=== PATIENT | female | born 1940 | race Caucasian/White ===

== ENCOUNTER 2024-05-21 09:26 | Observation (INO) ==
--- NOTE | 2024-04-20 11:43 | PAT Medication Instructions ---
Medication Instructions Date of Service April 20, 2024 Home Medications acetaminophen 325 mg capsule (Tylenol) 650 mg PO QID PRN Pain albuterol sulfate 90 mcg/actuation aerosol inhaler 2 puff inhalation QID PRN sob alendronate 70 mg tablet (Fosamax) 70 mg PO WK apixaban 5 mg tablet (Eliquis) 5 mg PO BID atorvastatin 20 mg tablet (Lipitor) 20 mg PO PM d-mannose 500 mg capsule 500 mg PO BID digoxin 125 mcg (0.125 mg) tablet 125 mcg PO DAILY docusate sodium 100 mg capsule 100 mg PO BID ferrous sulfate 325 mg (65 mg iron) tablet 325 mg PO DAILY fluticasone propionate 50 mcg/actuation nasal spray,suspension 1 spray intranasal BID PRN Congestion lisinopril 5 mg tablet 5 mg PO HS metoprolol succinate 25 mg tablet,extended release 24 hr 25 mg PO BID mirabegron 25 mg tablet,extended release 24 hr (Myrbetriq) 25 mg PO QPM montelukast 10 mg tablet (Singulair) 10 mg PO HS multivitamin 1 tab PO QAM oxycodone 5 mg tablet 5 mg PO BID PRN Pain Continue as directed alendronate 70 mg tablet (Fosamax) 70 mg PO WK ASK your prescriber and surgeon apixaban 5 mg tablet (Eliquis) 5 mg PO BID (From anesthesia perspective, Apixaban/Eliquis needs to be stopped 72 hours/3 days before surgery. Please check if okay with doctor that prescribes this to you) DO NOT take the morning of surgery d-mannose 500 mg capsule 500 mg PO BID docusate sodium 100 mg capsule 100 mg PO BID ferrous sulfate 325 mg (65 mg iron) tablet 325 mg PO DAILY multivitamin 1 tab PO QAM Take morning of surgery With a small sip of water, OTHERWISE NOTHING TO EAT OR DRINK AFTER MIDNIGHT: acetaminophen 325 mg capsule (Tylenol) 650 mg PO QID PRN Pain (if needed) albuterol sulfate 90 mcg/actuation aerosol inhaler 2 puff inhalation QID PRN sob (use if needed; please bring rescue inhaler with you to hospital day of surgery if possible) digoxin 125 mcg (0.125 mg) tablet 125 mcg PO DAILY fluticasone propionate 50 mcg/actuation nasal spray,suspension 1 spray intranasal BID PRN Congestion (if needed) metoprolol succinate 25 mg tablet,extended release 24 hr 25 mg PO BID oxycodone 5 mg tablet 5 mg PO BID PRN Pain (if needed) Take evening before surgery acetaminophen 325 mg capsule (Tylenol) 650 mg PO QID PRN Pain (if needed) albuterol sulfate 90 mcg/actuation aerosol inhaler 2 puff inhalation QID PRN sob (if needed) atorvastatin 20 mg tablet (Lipitor) 20 mg PO PM d-mannose 500 mg capsule 500 mg PO BID docusate sodium 100 mg capsule 100 mg PO BID fluticasone propionate 50 mcg/actuation nasal spray,suspension 1 spray intranasal BID PRN Congestion (if needed) lisinopril 5 mg tablet 5 mg PO HS metoprolol succinate 25 mg tablet,extended release 24 hr 25 mg PO BID mirabegron 25 mg tablet,extended release 24 hr (Myrbetriq) 25 mg PO QPM montelukast 10 mg tablet (Singulair) 10 mg PO HS oxycodone 5 mg tablet 5 mg PO BID PRN Pain (if needed) Other Notes If you have any questions please call us at [phone] or [phone] or [phone] or [phone]
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
[~2024-05-21 09:26] MED LIST: ALLERGY Noted to ORDERED Medication SCH; ROPIV 0.5% 246mg, Ketorolac 30mg, EPINEPHrine 0.5mg in NSS INFIL SCH; ROPIVACAINE 0.5% 5 MG/ML 30 ML VIAL ONE
[2024-05-21] MEDS: LR 60ML/HR IV SCH (10:08)
[2024-05-21] MEDS: LR 500ML BOLUS, THEN 15ML/HR IV SCH (10:09)
[2024-05-21] MEDS: ACETAMINOPHEN 500 MG TAB PO SCH ×2 (10:31→15:20)
[2024-05-21] MEDS: FAMOTIDINE 20 MG TAB PO SCH (10:31)
[2024-05-21] MEDS: dexAMETHasone**PF** 10 MG/ML VIAL IV SCH (10:32)
[2024-05-21] MEDS: GABAPENTIN 300 MG CAP PO SCH (10:32)
[2024-05-21] MEDS: METOCLOPRAMIDE HCL 10 MG TABLET PO SCH (10:32)
[2024-05-21] MEDS: DIGOXIN 0.125 MG TAB PO ONE (10:36)
[2024-05-21] MEDS: METOPROLOL SUCC 25MG EXT REL TAB PO ONE (10:38)
[2024-05-21] MEDS: APREPITANT 40 MG CAP PO ONE (10:39)
[2024-05-21] MEDS ORDERED: ONDANSETRON INJ 2 MG/ML 2 ML VIAL ONE (10:58)
[2024-05-21] MEDS ORDERED: MIDAZOLAM HCL 1 MG/ML 2ML VIAL ONE ×2 (10:58)
[2024-05-21] MEDS ORDERED: fentaNYL citrate PF 100 MCG/2 ML VIAL ONE (10:58)
--- NOTE | 2024-05-21 11:01 | History & Physical Bridge Note ---
Date of Service May 21, 2024 History & Physical Bridge Note I have examined the patient, reviewed the History & Physical and in the interval since the performance of the History & Physical I have noted the following changes of clinical significance: no changes noted
[2024-05-21] MEDS ORDERED: ONDANSETRON INJ 2 MG/ML 2 ML VIAL IV PRN ×2 (11:53→15:20)
[2024-05-21] MEDS ORDERED: ATROPINE SULFATE 0.1 MG/ML 10ML SYR IV PRN (11:53)
[2024-05-21] MEDS ORDERED: KETOROLAC 30 MG/ML VIAL IV PRN (11:53)
[2024-05-21] MEDS ORDERED: fentaNYL citrate PF 100 MCG/2 ML VIAL IV PRN (11:53)
[2024-05-21] MEDS ORDERED: ePHEDrine sulfate 50 MG/ML AMP IV PRN (11:53)
[2024-05-21] MEDS: TRANEXAMIC ACID 1,000 MG **IV Pre-op IV SCH (12:12)
[2024-05-21] MEDS: ceFAZolin 2000MG 2,000 MG/15 ML SYR IV SCH ×2 (12:28→20:33)
[2024-05-21] MEDS: ROPIV 0.5% 246mg, Ketorolac 30mg, EPINEPHrine 0.5mg in NSS INFIL SCH (12:57)
[2024-05-21] MEDS: ORTHO JOINT ANESTHETIC ONE (12:57)
[2024-05-21] MEDS ORDERED: ePHEDrine sulfate 50 MG/5 ML SYR ONE (13:24)
[2024-05-21] MEDS ORDERED: KETOROLAC 30 MG/ML VIAL ONE (13:36)
[2024-05-21] MEDS: TRANEXAMIC ACID 1,000 MG **IV Intra-op IV SCH (13:36)
--- NOTE | 2024-05-21 13:45 | Post Operative Brief Note ---
Immediate Post Op Note Date of Surgery May 21, 2024 Pre & Post Diagnosis Operation Date: 05/21/24 11:45 Pre-Op Diagnosis: Osteoarthritis Left Hip Post-Op Diagnosis: Osteoarthritis Left Hip I identified the patient and participated in the time-out.: Yes Procedure Operation Date: 05/21/24 11:45 Actual Procedures p Left Cemented Total Hip Replacement - Anterior Approach(Left) - Valeriy Vogel MD Surgeon Valeriy Vogel MD Home Care Administrator hong jimenez Estimated Blood Loss 100 Findings Consistent with Post-Op Diagnosis
--- NOTE | 2024-05-21 14:34 | Operative Report ---
Post Operative Report Pre & Post Diagnosis Operation Date: 05/21/24 11:45 Pre-Op Diagnosis: Osteoarthritis Left Hip Post-Op Diagnosis: Osteoarthritis Left Hip I identified the patient and participated in the time-out.: Yes Procedure Operation Date: 05/21/24 11:45 Actual Procedures p Left Cemented Total Hip Replacement - Anterior Approach(Left) - Valeriy riojas MD Surgeon Valeriy Vogel MD Physician Relations Manager som jimenez Estimated Blood Loss 100 Findings Consistent with Post-Op Diagnosis Patient had severe degenerative changes with large pieces of loose cartilage fragments and a severely inflamed synovial lining. Specimens Femoral head loose cartilage fragments and capsular and labral tissue Complications none Indications components used: [employer] Polar cemented hip system: Acetabulum size 52 with 25 mm dome screw and 36 mm highly cross-linked polyethylene liner. Femur size 2 standard offset with +436 mm Oxinium head Description of Procedure following satisfactory spinal anesthesia the patient was supine on the operating room table. The right leg was placed in the traction and device in the left leg in the well-leg hugo. Positioning was confirmed with fluoroscopy. The leg was prepared with ChloraPrep and draped sterilely. A surgical timeout was performed. An anterior approach was performed in the interval between the sartorius and tensor muscles. The circumflex femoral vessels were identified and coagulated. An anterior capsulotomy was performed exposing the severely arthritic femoral neck and head. Findings were noted above. Fluoroscopy was used to confirm femoral neck resection level which was completed and the arthritic femoral head was removed. The acetabular self-retaining retractor was placed. Acetabular preparation was completed with excision of capsular and labral tissue. The acetabulum was reamed under direct vision. A 52 shell was impacted into a healthy bleeding bed in a position of 35 to 40 degrees of abduction 25 degrees of anteversion confirm ed with fluoroscopy. A dome screw was placed followed by the polyethylene liner. Local anesthetic was placed and the wound was irrigated. The femur was placed into a position of external rotation extension and adduction. The femoral canal was identified and was prepared to a size 2. A trial reduction with a standard offset neck and +4 head showed good fit and fill of the proximal canal very good orientation of the components, and religion of leg length and offset at the level of the lesser trochanter. The hip was dislocated. The trial components removed. A cement restriction plug was placed. Third-generation cement technique was then used to cement size 2 standard offset polar stem using Christopher Z be cement. When the cemented hardened the knee or hip was reduced again with +4 head trial and showed similar findings with religion of leg length and offset. The hip was dislocated 1 final time. The trial head removed the final head placed the wound was irrigated with 500 cc of experience irrigation and the hip reduced. There was very little bleeding. The tensor fascia was closed with a running suture of 0 strata fix as well as the deeper subcutaneous fat layers. The most superficial layer was closed with surgical agustín. A- pressure wound dressing was applied. The patient was returned to her bed and taken to the recovery room having tolerated the procedure in good condition. Note: Som THOMAS was present and assisted throughout due to the complicated nature of this case. He help with preparation and set up an list of first job ideas throughout. He assisted with hemostasis and exposure throughout. He also closed the fascial subcutaneous and skin layers and applied the postop dressing. I attest to the content of the Intraoperative Record and any orders documented therein. Any exceptions are noted below.
--- NOTE | 2024-05-21 14:47 | Anesthesiology Progress Note ---
Date of Service May 21, 2024 Anesthesia Post Procedure Vital Signs Vital Signs: Temp Pulse Pulse Resp BP Pulse Ox O2 Del Method 05/21/24 14:35 58 L 13 118/58 L 94 Room Air 05/21/24 14:25 54 L 12 106/54 L 95 Room Air 05/21/24 14:15 58 L 19 118/60 100 Oxymask 05/21/24 14:05 57 L 12 136/61 100 Oxymask 05/21/24 13:56 37.1 C 78 16 126/60 100 Oxymask 05/21/24 10:36 59 L 05/21/24 10:20 36.8 C 63 18 160/75 H 99 Room Air O2 Flow Rate 05/21/24 14:35 05/21/24 14:25 05/21/24 14:15 2 05/21/24 14:05 11 05/21/24 13:56 11 05/21/24 10:36 05/21/24 10:20 Pain Intensity Left Hip: Pain Intensity: 3 Transfer of Care Handoff Completed per policy Notes Mental Status: alert / awake / arousable Patient Amnestic to Procedure: Yes Nausea / Vomiting: adequately controlled Pain: adequately controlled Airway Patency, RR, SpO2: stable & adequate BP & HR: stable & adequate Hydration State: stable & adequate Neuraxial Anesthesia: was administered and sensory block is resolving Anesthetic Complications: no major complications apparent
[2024-05-21] MEDS ORDERED: ALBUTEROL HFA 8 GM INHALER INH PRN (15:20)
[2024-05-21] MEDS ORDERED: MAGNESIUM HYDROXIDE SUSP 30 ML UDC PO PRN (15:20)
[2024-05-21] MEDS ORDERED: FLUTICASONE PROPIONATE NA SPR 16 GM BTL PRN (15:20)
[2024-05-21] MEDS: SODIUM CHLORIDE 0.9% 1,000 ML IV SCH (15:20)
[2024-05-21] MEDS ORDERED: METOCLOPRAMIDE HCL INJ 5 MG/ML 2 ML VIAL IV PRN (15:20)
[2024-05-21] MEDS ORDERED: bisacodyL 10 MG SUPP PR PRN (15:20)
[2024-05-21] MEDS ORDERED: NALOXONE HCL 0.4 MG/1 ML VIAL/CARP IV PRN (15:20)
--- NOTE | 2024-05-21 16:30 | Fluoroscopy Report ---
FL hip LT 1V CLINICAL HISTORY: LEFT ANTERIOR HIP COMPARISON STUDY: None. FLUOROSCOPY TIME: 9 seconds. FLUOROSCOPY IMAGES: 1 Ka,r: 1.2 mGy FINDINGS: There is a left total hip arthroplasty. The hardware is intact. No fracture or dislocation. IMPRESSION: Fluoroscopic assistance as above. ACT 112: Negative or not required by law. Electronically signed by: Kalin Padgett M.D. 05/21/2024 4:29 PM
[2024-05-21] MEDS: METOPROLOL SUCC 25MG EXT REL TAB PO SCH (20:34)
[2024-05-21] MEDS: DOCUSATE SODIUM 100 MG CAP PO SCH ×2 (20:34→20:45)
[2024-05-21] MEDS: lisinopril 5 MG TAB PO SCH (20:34)
[2024-05-21] MEDS: MONTELUKAST SODIUM 10 MG TABLET PO SCH (20:35)
[2024-05-21] MEDS: VIBEGRON 75 MG TAB PO SCH (20:36)
[2024-05-21] MEDS: SENNA 8.6 MG TAB PO SCH (20:44)
[2024-05-21] MEDS ORDERED: NON-FORMULARY MEDICATION (D-Mannose 500 mg Capsule) PO SCH (21:00)
[2024-05-22] MEDS: oxyCODONE HCL IR 5 MG TAB (IMMEDIATE RELEASE) PO PRN (00:12)
[2024-05-22 06:04] LABS: Basophils # (auto) 0.01 K/uL (0.00-0.20); Basophils % (auto) 0.1 %; Eosinophils # (auto) 0.02 K/uL (0.00-0.50); Eosinophils % (auto) 0.2 %; Hematocrit (blood only) 27.4 % (37.0-47.0); Hemoglobin 8.8 g/dl (12.0-16.0); Immature Granulocytes # (auto) 0.07 K/uL (0.01-0.20); Immature Granulocytes % (auto) 0.6 %; Lymphocytes # (auto) 1.06 K/uL (1.20-3.40); Lymphocytes % (auto) 9.3 %; Mean Corpuscular Hgb Conc 32.1 g/dL (32.0-36.0); Mean Corpuscular Volume 90.4 fL (80.0-100.0); Mean Platelet Volume 9.6 fL (9.4-12.4); Monocytes # (auto) 0.68 K/uL (0.11-0.59); Neutrophils # (auto) 9.51 K/uL (1.40-6.50); Neutrophils % (auto) 83.8 %; Platelet Count 193 K/uL (130-400); RDW Coefficient of Variation 12.7 % (11.5-14.5); RDW Standard Deviation 41.9 fL (36.4-46.3); Red Blood Count 3.03 M/uL (4.20-5.40); White Blood Count 11.35 K/ul (4.8-10.8)
[2024-05-22 06:16] LABS: BUN Creatinine Ratio 26.5 (10-20); Calcium 8.3 mg/dl (8.6-10.3); Creatinine Clr Calc Pharmacy 47.9 ml/min; Est GFR (African American) 62.7 ml/min; Est GFR (Non-African American) 54.1 ml/min; Potassium 4.6 mmol/L (3.5-5.1)
[2024-05-22 07:21] VITALS: BP 120/66; RESP 16; TEMP 98.1; O2SAT 96
[2024-05-22] MEDS: FERROUS SULFATE 325 MG TAB PO SCH (07:21)
[2024-05-22] MEDS: MULTIVITAMIN TAB PO SCH (07:23)
[2024-05-22] MEDS: DIGOXIN 0.125 MG TAB PO SCH (07:23)
--- NOTE | 2024-05-22 07:35 | Orthopedic Progress Note ---
Date of Service May 22, 2024 Assessment & Plan (1) Degenerative joint disease of left hip: Plan: Postop day 1 status post left total hip arthroplasty direct anterior. PT/OT protocols. Weightbearing as tolerated. DVT prophylaxis-Eliquis p.o. twice daily which will not start until tomorrow. Pain management as written. Acute blood loss anemia. Patient with history of anemia. Preop hemoglobin was 10.3. DC planning-patient is planning for discharge to home with home health services. Plan for discharge to home this morning after PT. Admission and Anticipated Discharge Date Admission Date: May 21, 2024 Subjective postop day 1 patient sleeping upon arrival. Easily awoken. Patient has no complaints this morning. Pain is controlled. She feels good overall. She is hoping to go home today. Physical Exam Physical Exam: Ellen dressing is clean, dry, and intact. Functioning well. Thigh with mild swelling consistent with surgery but soft and nontender. Calves are soft nontender. Neurovascular is intact. Toes are mobile. She has good dorsiflexion plantarflexion of the left foot. Appear equal. Results & Data Vital Signs (Past 12 Hours) Vital Signs Temp Pulse Pulse Resp BP Pulse Ox O2 Del Method 05/22/24 07:23 66 05/22/24 07:16 36.7 C 63 16 120/66 96 Room Air 05/22/24 03:00 36.5 C 62 18 147/69 H 98 Room Air 05/21/24 23:40 36.3 C L 70 18 107/55 L 96 Room Air Laboratory Results Laboratory Results WBC 11.35 K/ul (4.8-10.8) H 05/22/24 05:41 RBC 3.03 M/uL (4.20-5.40) L 05/22/24 05:41 Hgb 8.8 g/dl (12.0-16.0) L 05/22/24 05:41 Hct 27.4 % (37.0-47.0) L 05/22/24 05:41 MCV 90.4 fL (80.0-100.0) 05/22/24 05:41 MCH 29.0 pg (25.0-34.0) 05/22/24 05:41 MCHC 32.1 g/dL (32.0-36.0) 05/22/24 05:41 RDW Std Deviation 41.9 fL (36.4-46.3) 05/22/24 05:41 RDW Coeff of Dao 12.7 % (11.5-14.5) 05/22/24 05:41 Plt Count 193 K/uL (130-400) 05/22/24 05:41 MPV 9.6 fL (9.4-12.4) 05/22/24 05:41 Immature Gran % (Auto) 0.6 % 05/22/24 05:41 Neut % (Auto) 83.8 % 05/22/24 05:41 Lymph % (Auto) 9.3 % 05/22/24 05:41 [place] % (Auto) 6.0 % 05/22/24 05:41 Eos % (Auto) 0.2 % 05/22/24 05:41 Baso % (Auto) 0.1 % 05/22/24 05:41 Neut # (Auto) 9.51 K/uL (1.40-6.50) H 05/22/24 05:41 Lymph # (Auto) 1.06 K/uL (1.20-3.40) L 05/22/24 05:41 [place] # (Auto) 0.68 K/uL (0.11-0.59) H 05/22/24 05:41 Eos # (Auto) 0.02 K/uL (0.00-0.50) 05/22/24 05:41 Baso # (Auto) 0.01 K/uL (0.00-0.20) 05/22/24 05:41 Immature Gran # (Auto) 0.07 K/uL (0.01-0.20) 05/22/24 05:41 Sodium 137 mmol/L (136-145) 05/22/24 05:41 Potassium 4.6 mmol/L (3.5-5.1) 05/22/24 05:41 Chloride 106 mmol/L (98-107) 05/22/24 05:41 Carbon Dioxide 25 mmol/L (21-32) 05/22/24 05:41 Anion Gap 6 (3-11) 05/22/24 05:41 BUN 26 mg/dl (6-23) H 05/22/24 05:41 Creatinine 0.98 mg/dl (0.6-1.2) 05/22/24 05:41 Est Cr Clr Drug Dosing 47.9 ml/min 05/22/24 05:41 Est GFR ( Amer) 62.7 ml/min 05/22/24 05:41 Est GFR (Non-Af Amer) 54.1 ml/min 05/22/24 05:41 BUN/Creatinine Ratio 26.5 (10-20) H 05/22/24 05:41 Glucose 137 mg/dl (70-99(Fasting)) H 05/22/24 05:41 Calcium 8.3 mg/dl (8.6-10.3) L 05/22/24 05:41 Impressions Hip X-Ray 05/21/24 11:45 FL hip LT 1V CLINICAL HISTORY: LEFT ANTERIOR HIP COMPARISON STUDY: None. FLUOROSCOPY TIME: 9 seconds. FLUOROSCOPY IMAGES: 1 Ka,r: 1.2 mGy FINDINGS: There is a left total hip arthroplasty. The hardware is intact. No fracture or dislocation. IMPRESSION: Fluoroscopic assistance as above. ACT 112: Negative or not required by law. Electronically signed by: Kalin Padgett M.D. 05/21/2024 4:29 PM
[2024-05-22 10:45] VITALS: PULSE 55
== END 2024-05-22 11:25 | disposition home health service (06) ==
LOC: 3W 09:26 → ASU 09:26